=== PATIENT | male | born 1985 | race Caucasian/White ===

== ENCOUNTER 2017-04-17 20:06 | Emergency (ER) | payer OTHER, MEDICAID ==
[~2017-04-17] VITALS: Ht 170.2 cm; Wt 99.8 kg
[2017-04-17 20:18] VITALS: BP 141/100
--- NOTE | 2017-04-17 20:25 | NUR ---
Patient BIB [facility] to be evaluated as pre-book, transferred to [facility]. RN evaluating patient at bedside.
[2017-04-17 21:26] VITALS: BP 142/98
--- NOTE | 2017-04-17 21:26 | NUR ---
PATIENT BIB [facility]. PATIENT EXAMINED BY DR. ADAMS. PATIENT MEDICALLY CLEARED AND RELEASED IN CUSTODY IN STABLE CONDITION. ORIGINAL PRE-BOOK FORM GIVEN TO OFFICER. DISCHARGE INSTRUCTIONS GIVEN TO OFFICER. PT VERBALIZED UNDERSTANDING.
== END 2017-04-17 21:26 ==
LOC: MED 20:06
DX: Z02.89 Encounter for other administrative examinations (principal)
CPT/HCPCS: 99283

== ENCOUNTER 2020-04-02 11:34 | Emergency (ER) | payer OTHER, MEDICAID ==
[~2020-04-02] VITALS: Ht 167.6 cm; Wt 95.3 kg
[2020-04-02 11:47] VITALS: BP 126/81
--- NOTE | 2020-04-02 11:56 | NUR ---
34 y/o male from home c/o chest discomfort since waking this morning. States sternal 3/10 sharp pain. Denies cough/sob. RR even and unlabored. Denies nausea/vomiting. medhx: denies
--- NOTE | 2020-04-02 12:14 | NUR ---
Covid swab collected and walked to lab.
[2020-04-02 13:18] VITALS: BP 126/81
== END 2020-04-02 13:19 | disposition home or self-care (01) ==
LOC: MED 11:34
DX: R07.89 Other chest pain (principal)
CPT/HCPCS: 71045; 93005; 99285